=== PATIENT | female | born 1945 | race Caucasian/White ===

== ENCOUNTER 2017-03-27 06:53 | Day surgery (SDC) | payer MEDICARE, OTHER ==
[2017-03-27] MEDS ORDERED: Lactated Ringers 1,000 ML IV SCH (07:00)
[2017-03-27] MEDS ORDERED: Lidocaine 1%/Sod Bicarbonate in NS 8.4% 1 ML Syringe IV PRN (07:00)
[2017-03-27] MEDS ORDERED: Sodium Chloride 0.9% 10 ML Syringe FLUSH PRN (07:00)
[2017-03-27] MEDS ORDERED: Lidocaine 1% with EPINEPHrine 1:100,000 20 ML MDV ONE (07:20)
[2017-03-27] MEDS ORDERED: Albuterol 0.083% 2.5 MG/3 ML Neb Soln NEB ONE (07:24)
--- NOTE | 2017-03-27 07:33 | PCM.PREANE ---
Preanesthetic Assessment - Anesthesia/Transfusion/Family Hx Anesthesia History: Prior Anesthesia Without Reaction Family History of Anesthesia Reaction: No Transfusion History: No Prior Transfusion(s) - Review of Systems General: No Symptoms Pulmonary: Shortness of Breath (all the time-) Cardiovascular: Dyspnea on Exertion Gastrointestinal: Abdominal Pain (heartburn), Hematochezia, Other (dysphagia) Neurological: No Symptoms Other: Reports: Thyroid Problems, Depression, Anxiety - Physical Assessment NPO Status Date: 03/26/17 (sip of water with pill) NPO Status Time: 16:00 Pulse: 79 O2 Sat by Pulse Oximetry: 87 (86-88 without o2- 91 with deep breaths) Respiratory Rate: 16 Blood Pressure: 124/63 Temperature: 98.1 F Height: 4 ft 9 in Weight: 78.018 kg ASA Class: 3 Mental Status: Alert & Oriented x3 Airway Class: Mallampati = 1 Dentition: Reports: Normal Dentition Thyro-Mental Finger Breadths: 3 Mouth Opening Finger Breadths: 3 ROM/Head Extension: Full Lungs: Clear to Auscultation, Normal Respiratory Effort Cardiovascular: Regular Rate, Regular Rhythm - Allergies Allergies/Adverse Reactions: Allergies Allergy/AdvReac Type Severity Reaction Status Date / Time adhesive Allergy Rash Verified 12/06/15 11:08 bacitracin Allergy Rash Verified 12/06/15 11:08 neomycin Allergy Rash Verified 12/06/15 11:08 - Blood Blood Available: No - Acknowledgements Anesthesia Type Planned: MAC Pt an Appropriate Candidate for the Planned Anesthesia: Yes Alternatives and Risks of Anesthesia Discussed w Pt/Guardian: Yes Pt/Guardian Understands and Agrees with Anesthesia Plan: Yes PreAnesthesia Questionnaire Cardiovascular History: Reports: High Cholesterol, Hypertension Respiratory History: Reports: COPD, SOB, Other (See Below) (resp failure- o2 at home prn- 2 L) Gastrointestinal History: Reports: GERD Musculoskeletal History: Reports: Osteoporosis Psychiatric History: Reports: Anxiety, Depression Endocrine/Metabolic History: Reports: Obesity/BMI 30+ - Past Surgical History GI Surgical History: Reports: Colonoscopy Female Surgical History: Reports: Breast Biopsy - SUBSTANCE USE Smoking Status *Q: Former Smoker Tobacco Use Within Last Twelve Months: No Second Hand Smoke Exposure: No Days Per Week of Alcohol Use: 0 Recreational Drug Use History: No - HOME MEDS Home Medications: Home Meds Denosumab [Prolia] 1 dose SQ ASDIRECTED 06/21/14 [History] Levothyroxine [Synthroid] 50 mcg PO DAILY 06/21/14 [History] Sertraline HCl [Zoloft] 100 mg PO DAILY 06/21/14 [History] busPIRone [Buspar] 10 mg PO DAILY 06/21/14 [History] Ibuprofen 200 mg PO ASDIRECTED PRN 06/22/14 [History] Albuterol [Proventil HFA] 6.7 gm INH Q6H PRN 10/25/15 [History] Fluticasone Propionate [Flonase] 1 spray NASBOTH DAILY PRN 10/25/15 [History] Tiotropium Br/Olodaterol HCl [Stiolto Respimat Inhal [place]] 2 puff INH DAILY [History] Tiotropium Br/Olodaterol HCl [Stiolto Respimat Inhal [place]] 4 gm IH BID [History] - CURRENT (IN HOUSE) MEDS Current Meds: Current Medications Lactated Ringer's (Ringers, Lactated) 1,000 mls @ 125 mls/hr IV ASDIRECTED SELAM Stop: 03/27/17 23:00 Lidocaine/Sodium Bicarbonate (Buffered Lidocaine 1% In Ns 8.4%) 0.25 ml IV ONETIME PRN PRN Reason: Prior to IV Start Stop: 03/27/17 18:00 Sodium Chloride (Saline Flush) 10 ml FLUSH ASDIRECTED PRN PRN Reason: Keep Vein Open Stop: 03/27/17 18:00 Discontinued Medications Albuterol (Proventil Neb Soln) 2.5 mg NEB ONETIME ONE Stop: 03/27/17 07:25 Fentanyl (Sublimaze) Confirm Administered Dose 100 mcg .ROUTE .STK-MED ONE Stop: 03/27/17 07:38 Lidocaine HCl (Xylocaine-Mpf 1%) Confirm Administered Dose 4 mls @ as directed .ROUTE .STK-MED ONE Stop: 03/27/17 07:37 Midazolam HCl (Versed 1 Mg/Ml) Confirm Administered Dose 2 mg .ROUTE .STK-MED ONE Stop: 03/27/17 07:38 Propofol (Diprivan 20 Ml) Confirm Administered Dose 200 mg .ROUTE .STK-MED ONE Stop: 03/27/17 07:38 Propofol (Diprivan 20 Ml) Confirm Administered Dose 200 mg .ROUTE .STSentiOne-MED ONE Stop: 03/27/17 07:40
[2017-03-27] MEDS ORDERED: Lidocaine 1% 4 ML ONE (07:36)
[2017-03-27] MEDS ORDERED: Midazolam 1 MG/ML 2 ML SDV ONE (07:37)
[2017-03-27] MEDS ORDERED: fentaNYL 100 MCG/2 ML SDV ONE (07:37)
[2017-03-27] MEDS ORDERED: Propofol 200 MG/20 ML SDV ONE ×2 (07:37→07:39)
--- NOTE | 2017-03-27 08:34 | PCM48HPAN ---
Post Anesthesia Note - EVALUATION WITHIN 48HRS OF ANESTHETIC Vital Signs in Normal Range: Yes Patient Participated in Evaluation: Yes Respiratory Function Stable: Yes Airway Patent: Yes Cardiovascular Function Stable: Yes Hydration Status Stable: Yes Pain Control Satisfactory: Yes Nausea and Vomiting Control Satisfactory: Yes Mental Status Recovered: Yes
--- NOTE | 2017-03-27 08:42 | PCM.OPNOTE ---
- General Post-Op/Procedure Note Date of Surgery/Procedure: 03/27/17 Operative Procedure(s): 1. Sebaceous Cyst removal by elliptical excision left neck 2. EGD with cold forceps biopsy 3. Colonoscopy Findings: 1. Sebaceous Cyst 2. Esophagitis 3. Gastritis 4. Internal and External Hemorrhoids Pre Op Diagnosis: 1. Sebaceous Cyst Right Neck 2. Dysphagia 3. Epigastric Pain 4. Hematochezia Post-Op Diagnosis: 1. Sebaceous Cyst Right Neck 2. Esophagitis 3. Gastritis 4. Internal and External Hemorrhoids Anesthesia Technique: MAC Primary Surgeon: Nikita Hassan Anesthesia Provider: Pablo Niño EBShawn in mLs: 5 Complications: None Condition: Good Free Text/Narrative:: After patient gave verbal and written consent she was placed on blood pressure and pulse ox monitoring. She was given IV sedation which she tolerated well. Attention was turned to the 1x1 cm sebaceous cyst of the right neck and the area was prepped and draped in the usual sterile fashion using chlorhexidine. Using 1 ml of 1% lidocaine with epinephrine the area was anesthetized and the cyst was elliptically excised with a #15 blade resulting in a wound that was 1 x 1 cm. Using 5-0 prolene sutures the wound was approximated with 3 interrupted sutures. The wound was dressed with a petrolatum gauze and bandage. She tolerated well, no complications, the specimen was not submitted to pathology. The patient was then prepped for EGD. The gastroscope was passed down through the oropharynx into the 2nd portion of the duodenum without difficulty. The mucosal surfaces were imaged extensively. Gastritis and distal esophagitis were noted. Cold forceps biopsies were taken of the antrum, stomach body and GE junction. Bile was noted to reflux back into the stomach through the pylorus. The scope was then removed and there were no complications. The patient was then prepped for colonoscopy. The olympus colonoscope was inserted per rectum and advanced to the cecum without difficulty. The ileocecal valve and appendiceal orfice were imaged documenting cecal intubation. The scope was slowly withdrawn, the prep was excellent, the views were excellent, the scope was brought down into the rectum and was retroflexed. Internal and external hemorrhoids were noted on exam. The scope was removed, there were no complications.
[2017-03-27 09:27] VITALS: BP 112/63
== END 2017-03-27 09:35 | disposition home or self-care (01) ==
LOC: JD.SDS 06:53
PROVIDERS: ATTEND Family Medicine
DX: K29.40 Chronic atrophic gastritis without bleeding (principal); K31.89 Other diseases of stomach and duodenum; K20.9 Esophagitis, unspecified; L72.3 Sebaceous cyst; K64.4 Residual hemorrhoidal skin tags; K64.8 Other hemorrhoids; K21.9 Gastro-esophageal reflux disease without esophagitis; J96.11 Chronic respiratory failure with hypoxia; J44.9 Chronic obstructive pulmonary disease, unspecified; F32.9 Major depressive disorder, single episode, unspecified; F41.9 Anxiety disorder, unspecified; E78.00 Pure hypercholesterolemia, unspecified; E07.9 Disorder of thyroid, unspecified; E66.9 Obesity, unspecified; M81.0 Age-related osteoporosis without current pathological fracture; Z79.899 Other long term (current) drug therapy; Z88.1 Allergy status to other antibiotic agents; Z88.4 Allergy status to anesthetic agent; Z91.040 Latex allergy status; Z91.048 Other nonmedicinal substance allergy status; Z87.19 Personal history of other diseases of the digestive system; Z99.81 Dependence on supplemental oxygen; Z98.890 Other specified postprocedural states; Z87.891 Personal history of nicotine dependence; Z68.34 Body mass index [BMI] 34.0-34.9, adult
CPT/HCPCS: 11421; 43239; 45378; 94664; J2250; J3010; J7120; 00810; 88305; 88342; J2704

== ENCOUNTER 2019-05-02 13:33 | Emergency (ER) | payer MEDICARE, OTHER ==
[2019-05-02 13:59] VITALS: BP 166/95; PULSE 97
--- NOTE | 2019-05-02 15:20 | CT ---
CT lumbar spine Technique: Multiple axial sections were obtained from above the T11 vertebral body inferiorly through the L5-S1 disc. Reconstructed coronal and sagittal images were obtained. Comparison: Previous lumbar spine MRI of 05/12/13. Findings: T11-T12: Severe disc space narrowing is noted with vacuum phenomena. Posterior disc is preserved. No central canal stenosis or neural foraminal stenosis is seen. T12-L1: Posterior disc is maintained. No central canal stenosis or neural foraminal stenosis is seen. L1-L2: Posterior disc is maintained. No central canal stenosis or neural foraminal stenosis is seen. L2-L3: Very minimal circumferential disc bulge is seen. Posterior disc maintains a concave margin. No central canal stenosis is seen. Neural foramina are patent. L3-L4: Endplate concavity is seen within L3. This is an interval change from previous MRI. Slight circumferential disc bulge is seen. Posterior disc maintains a planar margin. No central canal stenosis is seen. Neural foramina are patent. Mild degenerative apophyseal change is seen. L4-L5: Slight circumferential disc bulge is seen. Posterior disc maintains a planar margin. Mild degenerative apophyseal change is noted. No central canal stenosis is seen. Neural foramina are patent where the nerve roots exit. L5-S1: Vacuum disc phenomena is seen within the disc. Posterior disc is preserved. No central canal stenosis is seen. Neural foramina are felt to be patent where the nerve roots exit. Mild degenerative apophyseal change is noted. No acute fracture is seen. No abnormal subluxation is seen. Impression: 1. Mild degenerative change as noted above. No focal disc herniation is seen. No neural foraminal stenosis or central canal stenosis is seen. 2. Endplate concavity is seen inferiorly within L3. This is an interval change from prior MRI study. 3. No acute fracture is otherwise seen. Diagnostic code #3
--- NOTE | 2019-05-02 16:02 | EDM.PDOC ---
ED HPI GENERAL MEDICAL PROBLEM - General Chief Complaint: Lower Extremity Injury/Pain Stated Complaint: FALL/LOWER LEGS NUMB Time Seen by Provider: 05/02/19 14:00 Source of Information: Reports: Patient, RN Notes Reviewed - History of Present Illness INITIAL COMMENTS - FREE TEXT/NARRATIVE: 73-year-old lady had onset of discomfort and "numbness" both lower legs 2 days ago. On a couch watching the buys in football game and then when she decided to move she states she had sudden pain, almost like a mani horse both lower legs but also felt that both legs were numb and weak. He states she actually had to "lie on the floor for about an hour before the pain got better and she was then able to stand and walk. She continued to have some discomfort that later afternoon and evening but symptoms did gradually continue to improve. Today she is fine but when family heard about that felt that she did need to be evaluated. She's had no chest or abdominal pain. No difficulty breathing. Fever chills or unusual bladder symptoms. She's never had anything of that nature before. There was no fall or injury that she would be aware of. No current bladder symptoms. - Related Data Allergies Allergy/AdvReac Type Severity Reaction Status Date / Time adhesive Allergy Rash Verified 05/02/19 13:59 allantoin Allergy Cannot Verified 05/02/19 13:59 Remember bacitracin Allergy Rash Verified 05/02/19 13:59 Gramicidins Allergy Cannot Verified 05/02/19 13:59 Remember neomycin Allergy Rash Verified 05/02/19 13:59 polymyxin B Allergy Cannot Verified 05/02/19 13:59 Remember pramoxine Allergy Cannot Verified 05/02/19 13:59 Remember Sulfa (Sulfonamide Allergy Cannot Verified 05/02/19 13:59 Antibiotics) Remember suture Allergy Other Verified 05/02/19 13:59 silicon Allergy Cannot Uncoded 03/27/17 07:37 Remember Home Meds: Home Meds Levothyroxine [Synthroid] 50 mcg PO DAILY 06/21/14 [History] Albuterol [Proventil HFA] 6.7 gm INH Q6H PRN 10/25/15 [History] Tiotropium Br/Olodaterol HCl [Stiolto Respimat Inhal [place]] 2 puff INH DAILY [History] Budesonide [Pulmicort] 2 puff INH BID 05/02/19 [History] Calcium Carbonate/Vitamin D3 [Calcium 1,000 + D3 [place]] 1 tab PO DAILY [History] Denosumab [Prolia] 60 mg INJECT ASDIRECTED 05/02/19 [History] Fluticasone Propionate [Flonase] 1 spray NASBOTH DAILY PRN 05/02/19 [History] Hydrocortisone Acetate [Anusol-Hc] 25 mg RECTAL BID 05/02/19 [History] Ibuprofen 400 mg PO BEDTIME 05/02/19 [History] Oxygen 05/02/19 [History] Sucralfate [Carafate] 1 gm PO BEDTIME 05/02/19 [History] Tiotropium Br/Olodaterol HCl [Stiolto Respimat Inhal [place]] 2 puff INH DAILY [History] Venlafaxine [Effexor XR] 150 mg PO DAILY 05/02/19 [History] Vitamin B Complex 1 tab PO DAILY 05/02/19 [History] atorvaSTATin [Lipitor] 20 mg PO DAILY 05/02/19 [History] Past Medical History HEENT History: Reports: Impaired Vision Cardiovascular History: Reports: High Cholesterol, Hypertension Respiratory History: Reports: COPD, SOB, Other (See Below) Gastrointestinal History: Reports: GERD Musculoskeletal History: Reports: Osteoporosis Psychiatric History: Reports: Anxiety, Depression Endocrine/Metabolic History: Reports: Obesity/BMI 30+ - Past Surgical History GI Surgical History: Reports: Colonoscopy Female Surgical History: Reports: Breast Biopsy Social & Family History - Tobacco Use Smoking Status *Q: Former Smoker Used Tobacco, but Quit: Yes Month/Year Tobacco Last Used: 04/2013 - Caffeine Use Caffeine Use: Reports: Coffee - Recreational Drug Use Recreational Drug Use: No Review of Systems - Review of Systems Review Of Systems: See Below Constitutional: Denies: Chills, Diaphoresis, Fever Eyes: Reports: No Symptoms Mouth/Throat: Denies: No Symptoms Respiratory: Denies: No Symptoms, Shortness of Breath, Pleuritic Chest Pain, Cough Cardiovascular: Denies: Chest Pain GI/Abdominal: Denies: Abdominal Pain, Nausea, Vomiting Musculoskeletal: Reports: Back Pain, Leg Pain (Low back primarily lower legs below the knees bilateral). Denies: Neck Pain, Shoulder Pain Neurological: Reports: Numbness (Bilateral lower extremities below the knees, gone), Difficulty Walking, Weakness (Bilateral lower extremities, gone). Denies : Trouble Speaking, Change in Speech ED EXAM, GENERAL - Physical Exam Exam: See Below General Appearance: Alert, No Apparent Distress Eye Exam: Bilateral Eye: PERRL Throat/Mouth: Normal Inspection Head: Atraumatic Neck: Normal Inspection, Supple, Non-Tender Respiratory/Chest: No Respiratory Distress, Lungs Clear, Normal Breath Sounds Cardiovascular: Regular Rate, Rhythm GI/Abdominal: Soft, Non-Tender. No: Guarding Back Exam: Other (No visible swelling, warmth or erythema). No: Paraspinal Tenderness, Vertebral Tenderness Extremities: Normal Inspection, Normal Range of Motion. No: Leg Pain, Increased Warmth, Redness Neurological: Alert, Oriented, No Motor/Sensory Deficits, Other (No weakness present at time of exam upper or lower extremities, finger to nose testing normal) Skin Exam: Warm, Dry, Normal Color EKG INTERPRETATION EKG Date: 05/02/19 Rhythm: NSR P-Wave: Present QRS: Other (q waves inf. leads) ST-T: Normal Course - Vital Signs Last Recorded V/S: Last Vital Signs Temp 99.3 F 05/02/19 13:53 Pulse 97 05/02/19 13:53 Resp 15 05/02/19 13:53 BP 166/95 H 05/02/19 13:53 Pulse Ox 91 L 05/02/19 13:53 - Orders/Labs/Meds Labs: Laboratory Tests 05/02/19 05/02/19 Range/Units 14:40 14:40 WBC 6.80 (3.98-10.04) K/mm3 RBC 4.40 (3.98-5.22) M/mm3 Hgb 12.8 (11.2-15.7) gm/dl Hct 39.5 (34.1-44.9) % MCV 89.8 (79.4-94.8) fl MCH 29.1 (25.6-32.2) pg MCHC 32.4 (32.2-35.5) g/dl RDW Std Deviation 44.2 (36.4-46.3) fL Plt Count 294 (182-369) K/mm3 MPV 9.1 L (9.4-12.3) fl Neut % (Auto) 59.1 (34.0-71.1) % Lymph % (Auto) 29.1 (19.3-51.7) % [place] % (Auto) 9.6 (4.7-12.5) % Eos % (Auto) 1.5 (0.7-5.8) Baso % (Auto) 0.4 (0.1-1.2) % Neut # (Auto) 4.02 (1.56-6.13) K/mm3 Lymph # (Auto) 1.98 (1.18-3.74) K/mm3 [place] # (Auto) 0.65 H (0.24-0.36) K/mm3 Eos # (Auto) 0.10 (0.04-0.36) K/mm3 Baso # (Auto) 0.03 (0.01-0.08) K/mm3 Sodium 141 (136-145) mEq/L Potassium 3.8 (3.5-5.1) mEq/L Chloride 107 (98-107) mEq/L Carbon Dioxide 26 (21-32) mEq/L Anion Gap 11.8 (5-15) BUN 12 (7-18) mg/dL Creatinine 1.0 (0.55-1.02) mg/dL Est Cr Clr Drug Dosing 38.37 mL/min Estimated GFR (MDRD) 55 (>60) mL/min BUN/Creatinine Ratio 12.0 L (14-18) Glucose 131 H (83-115) mg/dL Calcium 9.2 (8.5-10.1) mg/dL Total Bilirubin 0.3 (0.2-1.0) mg/dL AST 22 (15-37) U/L ALT 38 (14-59) U/L Alkaline Phosphatase 80 (46-116) U/L Total Protein 7.1 (6.4-8.2) g/dl Albumin 3.7 (3.4-5.0) g/dl Globulin 3.4 gm/dL Albumin/Globulin Ratio 1.1 (1-2) - Re-Assessments/Exams Free Text/Narrative Re-Assessment/Exam: 05/04/19 09:26 White blood count, chemistries normal. I did order an check a CT of her lumbar spine which did show some degenerative change but no acute pathology. She continued to be relatively asymptomatic while here in the ED, no current difficulty walking, no current focal weakness, discharage instructions as documented. Departure - Departure Time of Disposition: 17:04 Disposition: Home, Self-Care 01 Condition: Fair Clinical Impression: Leg pain, bilateral, Leg weakness, bilateral, Bilateral leg paresthesia - Discharge Information Referrals: Candace Liao MD [Primary Care Provider] - Forms: ED Department Discharge Additional Instructions: Continue current medications as prescribed, see Dr. Farris in about 1 week, call for appointment, follow-up clinic immediately or return to ED immediately if symptoms worsening in any way.
== END 2019-05-02 17:21 | disposition home or self-care (01) ==
LOC: JD.ED 13:33
DX: M79.662 Pain in left lower leg (principal); M79.661 Pain in right lower leg; R20.2 Paresthesia of skin; R53.1 Weakness; E78.00 Pure hypercholesterolemia, unspecified; I10 Essential (primary) hypertension; J44.9 Chronic obstructive pulmonary disease, unspecified; K21.9 Gastro-esophageal reflux disease without esophagitis; F41.9 Anxiety disorder, unspecified; F32.9 Major depressive disorder, single episode, unspecified; M81.0 Age-related osteoporosis without current pathological fracture; E66.9 Obesity, unspecified; Z68.32 Body mass index [BMI] 32.0-32.9, adult; Z79.899 Other long term (current) drug therapy; Z91.048 Other nonmedicinal substance allergy status; Z91.09 Other allergy status, other than to drugs and biological substances; Z88.1 Allergy status to other antibiotic agents; Z88.4 Allergy status to anesthetic agent; Z88.2 Allergy status to sulfonamides; Z79.51 Long term (current) use of inhaled steroids; Z87.891 Personal history of nicotine dependence
CPT/HCPCS: 36415; 72131; 72131-26; 80053; 85025; 93005; 93010; 99283; 99285-25

== ENCOUNTER 2020-02-17 18:18 | Emergency (ER) | payer MEDICARE, OTHER ==
[2020-02-17 18:33] VITALS: BP 136/66; PULSE 93
[2020-02-17] MEDS ORDERED: Sodium Chloride 0.9% 10 ML Syringe FLUSH PRN (18:49)
--- NOTE | 2020-02-17 18:53 | EDM.PDOC ---
ED HPI GENERAL MEDICAL PROBLEM - General Chief Complaint: Syncope Stated Complaint: [facility] Time Seen by Provider: 02/17/20 18:47 Source of Information: Reports: Patient, RN Notes Reviewed - History of Present Illness INITIAL COMMENTS - FREE TEXT/NARRATIVE: 74 yr old female with near syncopal event at clinic here in town a short time [employer]. Provider was "working on her 's toe". She started feeling weak, dizzy lightheaded. She has had some chills, increased nasal ghada. and sneezing yesterday and today. No known fever. She does have COPD. Uses oxygen at home at night and sometimes during the day. - Related Data Allergies Allergy/AdvReac Type Severity Reaction Status Date / Time adhesive Allergy Rash Verified 02/17/20 18:30 allantoin Allergy Cannot Verified 02/17/20 18:30 Remember bacitracin Allergy Rash Verified 02/17/20 18:30 Gramicidins Allergy Cannot Verified 02/17/20 18:30 Remember neomycin Allergy Rash Verified 02/17/20 18:30 polymyxin B Allergy Cannot Verified 02/17/20 18:30 Remember pramoxine Allergy Cannot Verified 02/17/20 18:30 Remember Sulfa (Sulfonamide Allergy Cannot Verified 02/17/20 18:30 Antibiotics) Remember suture Allergy Other Verified 02/17/20 18:30 silicon Allergy Cannot Uncoded 03/27/17 07:37 Remember Home Meds: Home Meds Levothyroxine [Synthroid] 50 mcg PO DAILY 06/21/14 [History] Albuterol [Proventil HFA] 6.7 gm INH Q6H PRN 10/25/15 [History] Tiotropium Br/Olodaterol HCl [Stiolto Respimat Inhal [place]] 2 puff INH DAILY 10/25/15 [History] Budesonide [Pulmicort] 2 puff INH BID 05/02/19 [History] Calcium Carbonate/Vitamin D3 [Calcium 1,000 + D3 [place]] 1 tab PO DAILY 05/02/19 [History] Denosumab [Prolia] 60 mg INJECT ASDIRECTED 05/02/19 [History] Fluticasone Propionate [Flonase] 1 spray NASBOTH DAILY PRN 05/02/19 [History] Hydrocortisone Acetate [Anusol-Hc] 25 mg RECTAL BID 05/02/19 [History] Ibuprofen 400 mg PO BEDTIME 05/02/19 [History] Oxygen 05/02/19 [History] Sucralfate [Carafate] 1 gm PO BEDTIME 05/02/19 [History] Tiotropium Br/Olodaterol HCl [Stiolto Respimat Inhal [place]] 2 puff INH DAILY 05/02/19 [History] Venlafaxine [Effexor XR] 150 mg PO DAILY 05/02/19 [History] Vitamin B Complex 1 tab PO DAILY 05/02/19 [History] atorvaSTATin [Lipitor] 20 mg PO DAILY 05/02/19 [History] Past Medical History HEENT History: Reports: Impaired Vision Cardiovascular History: Reports: High Cholesterol, Hypertension Respiratory History: Reports: COPD, SOB, Other (See Below) Gastrointestinal History: Reports: GERD Musculoskeletal History: Reports: Osteoporosis Psychiatric History: Reports: Anxiety, Depression Endocrine/Metabolic History: Reports: Obesity/BMI 30+ - Past Surgical History GI Surgical History: Reports: Colonoscopy Female Surgical History: Reports: Breast Biopsy Social & Family History - Caffeine Use Caffeine Use: Reports: Coffee ED ROS GENERAL - Review of Systems Review Of Systems: See Below Constitutional: Denies: Fever, Chills, Diaphoresis HEENT: Reports: No Symptoms Respiratory: Reports: Shortness of Breath (mild to moderate chronically), Cough (occasional) Cardiovascular: Denies: Chest Pain GI/Abdominal: Reports: Nausea (gone). Denies: Abdominal Pain, Vomiting Musculoskeletal: Denies: Shoulder Pain, Arm Pain Skin: Denies: Rash Neurological: Reports: Dizziness (now gone). Denies: Headache, Numbness, Tingling, Trouble Speaking ED EXAM, GENERAL - Physical Exam Exam: See Below General Appearance: Alert, No Apparent Distress Head: Atraumatic. No: Facial Swelling Neck: Supple Respiratory/Chest: No Respiratory Distress, Lungs Clear, Normal Breath Sounds Cardiovascular: Regular Rate, Rhythm GI/Abdominal: Soft, Non-Tender Extremities: Normal Inspection. No: Pedal Edema, Leg Pain, Increased Warmth, Redness Neurological: Alert, Oriented, No Motor/Sensory Deficits Skin Exam: Warm, Dry, Normal Color, No Rash EKG INTERPRETATION EKG Date: 02/17/20 Rhythm: NSR [place]: LAD-Left [place] Deviation P-Wave: Present QRS: Normal ST-T: Normal Course - Vital Signs Last Recorded V/S: Last Vital Signs Temp 97.6 F 02/17/20 18:27 Pulse 93 02/17/20 18:27 Resp 18 02/17/20 18:27 BP 136/66 02/17/20 18:27 Pulse Ox 91 L 02/17/20 21:00 - Orders/Labs/Meds Orders: Active Orders 24 hr Category Date Time Status Peripheral IV Insertion Adult [OM.PC] Stat Oth 02/17/20 18:50 Ordered Labs: Laboratory Tests 02/17/20 02/17/20 02/17/20 Range/Units 19:10 19:10 19:10 WBC 9.59 (3.98-10.04) K/mm3 RBC 4.60 (3.98-5.22) M/mm3 Hgb 13.5 (11.2-15.7) gm/dl Hct 41.5 (34.1-44.9) % MCV 90.2 (79.4-94.8) fl MCH 29.3 (25.6-32.2) pg MCHC 32.5 (32.2-35.5) g/dl RDW Std Deviation 45.9 (36.4-46.3) fL Plt Count 284 (182-369) K/mm3 MPV 9.0 L (9.4-12.3) fl Neut % (Auto) 75.9 H (34.0-71.1) % Lymph % (Auto) 16.1 L (19.3-51.7) % [place] % (Auto) 6.8 (4.7-12.5) % Eos % (Auto) 0.9 (0.7-5.8) Baso % (Auto) 0.2 (0.1-1.2) % Neut # (Auto) 7.28 H (1.56-6.13) K/mm3 Lymph # (Auto) 1.54 (1.18-3.74) K/mm3 [place] # (Auto) 0.65 H (0.24-0.36) K/mm3 Eos # (Auto) 0.09 (0.04-0.36) K/mm3 Baso # (Auto) 0.02 (0.01-0.08) K/mm3 D-Dimer, Quantitative 0.51 H (0.19-0.50) mg/L Sodium 140 (136-145) mEq/L Potassium 3.8 (3.5-5.1) mEq/L Chloride 104 (98-107) mEq/L Carbon Dioxide 28 (21-32) mEq/L Anion Gap 11.8 (5-15) BUN 17 (7-18) mg/dL Creatinine 1.1 H (0.55-1.02) mg/dL Est Cr Clr Drug Dosing 34.37 mL/min Estimated GFR (MDRD) 49 (>60) mL/min BUN/Creatinine Ratio 15.5 (14-18) Glucose 131 H (83-115) mg/dL Calcium 9.2 (8.5-10.1) mg/dL Ferritin (8-252) ng/ml Total Bilirubin 0.4 (0.2-1.0) mg/dL AST 19 (15-37) U/L ALT 35 (14-59) U/L Alkaline Phosphatase 79 (46-116) U/L Lactate Dehydrogenase 185 (81-234) U/L Troponin I < 0.017 (0.00-0.056) ng/mL C-Reactive Protein 0.6 (<1.0) mg/dL Total Protein 7.5 (6.4-8.2) g/dl Albumin 3.9 (3.4-5.0) g/dl Globulin 3.6 gm/dL Albumin/Globulin Ratio 1.1 (1-2) SARS Virus RNA (PCR) (NEGATIVE) 02/17/20 02/17/20 Range/Units 19:10 20:15 WBC (3.98-10.04) K/mm3 RBC (3.98-5.22) M/mm3 Hgb (11.2-15.7) gm/dl Hct (34.1-44.9) % MCV (79.4-94.8) fl MCH (25.6-32.2) pg MCHC (32.2-35.5) g/dl RDW Std Deviation (36.4-46.3) fL Plt Count (182-369) K/mm3 MPV (9.4-12.3) fl Neut % (Auto) (34.0-71.1) % Lymph % (Auto) (19.3-51.7) % [place] % (Auto) (4.7-12.5) % Eos % (Auto) (0.7-5.8) Baso % (Auto) (0.1-1.2) % Neut # (Auto) (1.56-6.13) K/mm3 Lymph # (Auto) (1.18-3.74) K/mm3 [place] # (Auto) (0.24-0.36) K/mm3 Eos # (Auto) (0.04-0.36) K/mm3 Baso # (Auto) (0.01-0.08) K/mm3 D-Dimer, Quantitative (0.19-0.50) mg/L Sodium (136-145) mEq/L Potassium (3.5-5.1) mEq/L Chloride (98-107) mEq/L Carbon Dioxide (21-32) mEq/L Anion Gap (5-15) BUN (7-18) mg/dL Creatinine (0.55-1.02) mg/dL Est Cr Clr Drug Dosing mL/min Estimated GFR (MDRD) (>60) mL/min BUN/Creatinine Ratio (14-18) Glucose (83-115) mg/dL Calcium (8.5-10.1) mg/dL Ferritin 143 (8-252) ng/ml Total Bilirubin (0.2-1.0) mg/dL AST (15-37) U/L ALT (14-59) U/L Alkaline Phosphatase (46-116) U/L Lactate Dehydrogenase (81-234) U/L Troponin I (0.00-0.056) ng/mL C-Reactive Protein (<1.0) mg/dL Total Protein (6.4-8.2) g/dl Albumin (3.4-5.0) g/dl Globulin gm/dL Albumin/Globulin Ratio (1-2) SARS Virus RNA (PCR) Negative (NEGATIVE) Meds: Medications Discontinued Medications Generic Name Dose Route Start Last Admin Trade Name Freq PRN Reason Stop Dose Admin Sodium Chloride 10 ml 02/17/20 18:49 02/17/20 18:53 Saline Flush FLUSH 10 ml ASDIRECTED PRN Administration Keep Vein Open - Re-Assessments/Exams Free Text/Narrative Re-Assessment/Exam: 02/17/20 20:39 WBC, CRP, trop, ferritin, LDH all nl, D Dimer well within nl for at 0.51. CXR no infiltrate. 02 sats at time of my eval 91 to 92 % room air. I did order a 60 minutes covid screen anticipating that she would be covid pos and need to be admitted. That is still pending. Now that all of the above markers are good, oxygenation better and in line with normal for her I am going to let her go home. Even is she does come back covid pos. at this time she is OK to go home with good return precautions discussed with patient. 02/17/20 21:29. covid screen neg. discussed with family. Departure - Departure Time of Disposition: 20:35 Disposition: Home, Self-Care 01 Condition: Fair Clinical Impression: Vasovagal near syncope Instructions: Near-Syncope, [id number] Referrals: PCP,None [Ordering Only Provider] - Forms: ED Department Discharge Additional Instructions: rest, we will call you the results of the covid screen when that becomes available to us later this evening. Rest, continue current meds. Return to ED as needed if symptoms worsening in any way. Sepsis Event Note (ED) - Evaluation Sepsis Screening Result: No Definite Risk - My Orders Last 24 Hours: My Active Orders 02/17/20 18:50 Peripheral IV Insertion Adult [OM.PC] Stat - Assessment/Plan Last 24 Hours: My Active Orders 02/17/20 18:50 Peripheral IV Insertion Adult [OM.PC] Stat
--- NOTE | 2020-02-17 19:42 | CR ---
Chest: Frontal view of the chest was obtained. Comparison: No prior chest imaging is available. Heart size is normal. Tortuous thoracic aorta is noted. Lungs show no acute parenchymal change. Impression: 1. Nothing acute is appreciated on frontal chest x-ray. Diagnostic code #1 This report was dictated in MDT
== END 2020-02-17 21:00 | disposition home or self-care (01) ==
LOC: JD.ED 18:18
DX: R55 Syncope and collapse (principal); I10 Essential (primary) hypertension; E78.00 Pure hypercholesterolemia, unspecified; J44.9 Chronic obstructive pulmonary disease, unspecified; E66.9 Obesity, unspecified; F41.9 Anxiety disorder, unspecified; F32.9 Major depressive disorder, single episode, unspecified; Z20.828 Contact with and (suspected) exposure to other viral communicable diseases; Z88.8 Allergy status to other drugs, medicaments and biological substances; Z88.1 Allergy status to other antibiotic agents; Z88.2 Allergy status to sulfonamides; Z91.048 Other nonmedicinal substance allergy status; Z91.09 Other allergy status, other than to drugs and biological substances; Z68.33 Body mass index [BMI] 33.0-33.9, adult
CPT/HCPCS: 36415; 71045; 80053; 82728; 83615; 84484; 85025; 85379; 86140; 93005; 99285; U0002; 93010; 99283

== ENCOUNTER 2021-07-19 09:55 | Emergency (ER) | payer MEDICARE, OTHER ==
[2021-07-19] MEDS ORDERED: Sodium Chloride 0.9% 10 ML Syringe FLUSH PRN (10:20)
[2021-07-19] MEDS ORDERED: diphenhydrAMINE 50 MG/ML SDV IVPUSH PRN (12:36)
[2021-07-19] MEDS ORDERED: EPINEPHrine 1 MG/ML SDV IM PRN (12:36)
[2021-07-19] MEDS ORDERED: Famotidine 20 MG/2 ML SDV IVPUSH PRN (12:36)
[2021-07-19] MEDS ORDERED: methylPREDNISolone Sodium Succinate 125 MG/2 ML SDV IVPUSH PRN (12:36)
[2021-07-19] MEDS ORDERED: Sodium Chloride 0.9% 10 ML Syringe FLUSH SCH (12:45)
[2021-07-19 13:01] VITALS: BP 116/93; PULSE 77
== END 2021-07-19 15:23 | disposition home or self-care (01) ==
LOC: JD.ED 09:55
DX: U07.1 COVID-19 (principal); E78.00 Pure hypercholesterolemia, unspecified; I10 Essential (primary) hypertension; J44.9 Chronic obstructive pulmonary disease, unspecified; F17.210 Nicotine dependence, cigarettes, uncomplicated; E66.9 Obesity, unspecified; Z68.32 Body mass index [BMI] 32.0-32.9, adult; Z91.048 Other nonmedicinal substance allergy status; Z88.8 Allergy status to other drugs, medicaments and biological substances; Z88.1 Allergy status to other antibiotic agents; Z88.2 Allergy status to sulfonamides; Z79.899 Other long term (current) drug therapy
CPT/HCPCS: 36415; 71045; 80053; 83605; 83880; 84484; 85007; 85027; 85379; 86140; 93005; 99285; M0247; Q0247; 93010; 99284

== ENCOUNTER 2024-08-13 09:21 | Inpatient (IN) | payer MEDICARE ==
[2024-08-13 10:42] LABS: INR 0.96; PROTHROMBIN TIME 10.2 SECONDS (9.7-12.0)
[2024-08-13 10:50] LABS: HEMATOCRIT 36.4 % (37.0-47.0); HEMOGLOBIN 11.7 gm/dl (12.0-16.0); MEAN CORPUSCULAR HEMOGLOBIN 29.6 pg (28.0-32.0); MEAN CORPUSCULAR HGB CONC 32.1 g/dl (32.0-36.0); MEAN CORPUSCULAR VOLUME 92.2 fl (83.0-99.0); MEAN PLATELET VOLUME 9.9 fl (9.4-12.3); PLATELET COUNT,PLT 173 K/mm3 (150-400); RED BLOOD CELL COUNT 3.95 M/mm3 (4.10-5.30); WHITE BLOOD CELL COUNT,WBC 6.91 K/mm3 (3.9-11.3)
[2024-08-13 11:15] LABS: BAND PERCENT MAN 0 % (0-10); BASOPHILS PERCENT MAN 0 (0.1-1.2); EOSINOPHILS PERCENT MAN 0 % (0.7-5.8); LYMPHOCYTES % ATYPICAL MANUAL 0 %; LYMPHOCYTES PERCENT MAN 13 % (20-40); MONOCYTES PERCENT MAN 8 % (2-10)
[2024-08-13 11:16] LABS: PLATELET COUNT ESTIMATE ADEQUATE; TOXIC GRANULATION FEW
[2024-08-13] MEDS: methylPREDNISolone Sodium Succinate 125 MG/2 ML SDV IVPUSH ONE (11:22)
[2024-08-13] MEDS: Acetaminophen 325 MG Tab PO ONE (11:24)
[2024-08-13] MEDS: Sodium Chloride 0.9% 10 ML Syringe FLUSH PRN (11:25)
[2024-08-13 11:26] LABS: LACTIC ACID 1.2 mmol/L (0.4-2.0)
[2024-08-13 11:28] LABS: A/G RATIO 0.8 (1-2); ALBUMIN 3.1 g/dl (3.4-5.0); ANION GAP 8.7 (5-15); BILIRUBIN TOTAL 0.5 mg/dL (0.2-1.0); BUN/CREATININE RATIO 18.2 (14-18); C-REACTIVE PROTEIN 3.62 mg/dL (<0.30); CALCIUM 8.8 mg/dL (8.5-10.1); CREATININE 1.1 mg/dL (0.55-1.02); EST CRCL DRUG DOSING (CG) 38.54 mL/min; POTASSIUM,K 3.7 mEq/L (3.5-5.1); PROTEIN TOTAL,TP 6.8 g/dl (6.4-8.2)
[2024-08-13] MEDS: Albuterol/Ipratropium 3.0-0.5 MG/3 ML Neb Soln NEB ONE (11:45)
[2024-08-13] MEDS ORDERED: Ondansetron 4 MG/2 ML SDV IV PRN (18:26)
[2024-08-13] MEDS ORDERED: Sennosides/Docusate Sodium 50-8.6 MG Tab PO PRN (18:26)
[2024-08-13] MEDS ORDERED: Acetaminophen 325 MG Tab PO PRN (18:26)
[2024-08-13] MEDS ORDERED: oxyCODONE 5 MG Tab PO PRN (18:26)
[2024-08-13] MEDS ORDERED: Fluticasone NASAL Spray 16 GM Bottle NASBOTH PRN (18:29)
[2024-08-13] MEDS ORDERED: Albuterol 6.7 GM Inhaler INH PRN (18:35)
[2024-08-13] MEDS: Enoxaparin 40 MG/0.4 ML Syringe SUBCUT SCH (19:51)
[2024-08-13] MEDS: Dexamethasone 4 MG/ML SDV IVPUSH SCH (19:51)
[2024-08-13] MEDS: Melatonin 3 MG Tab PO PRN (20:58)
[2024-08-13] MEDS ORDERED: Budesonide 0.25 MG/2 ML Neb Susp INH SCH (21:00)
[2024-08-13] MEDS: Budesonide 0.5 MG/2 ML Neb Susp INH SCH (21:24)
[2024-08-14 05:49] LABS: HEMATOCRIT 35.3 % (37.0-47.0); HEMOGLOBIN 11.4 gm/dl (12.0-16.0); IMMATURE GRAN ABSOLUTE AUTO 0.03 K/mm3 (0.00-0.05); IMMATURE GRAN PERCENT AUTO 0.4 % (0.0-0.4); LYMPHOCYTES ABSOLUTE AUTO 0.9 K/mm3 (1.0-4.8); LYMPHOCYTES PERCENT AUTO 13.3 % (24.0-44.0); MEAN CORPUSCULAR HEMOGLOBIN 29.5 pg (28.0-32.0); MEAN CORPUSCULAR HGB CONC 32.3 g/dl (32.0-36.0); MEAN CORPUSCULAR VOLUME 91.5 fl (83.0-99.0); MEAN PLATELET VOLUME 9.6 fl (9.4-12.3); MONOCYTES ABSOLUTE AUTO 0.6 K/mm3 (0.0-0.8); MONOCYTES PERCENT AUTO 8.6 % (0.0-8.0); NEUTROPHILS ABSOLUTE AUTO 5.3 K/mm3 (1.8-7.7); NEUTROPHILS PERCENT AUTO 77.7 % (41.0-71.0); PLATELET COUNT,PLT 159 K/mm3 (150-400); RED BLOOD CELL COUNT 3.86 M/mm3 (4.10-5.30); WHITE BLOOD CELL COUNT,WBC 6.78 K/mm3 (3.9-11.3)
[2024-08-14] MEDS: Albuterol/Ipratropium 3.0-0.5 MG/3 ML Neb Soln NEB PRN (06:19)
[2024-08-14 06:29] LABS: A/G RATIO 0.8 (1-2); ALBUMIN 2.7 g/dl (3.4-5.0); ANION GAP 10.1 (5-15); BILIRUBIN TOTAL 0.3 mg/dL (0.2-1.0); C-REACTIVE PROTEIN 5.29 mg/dL (<0.30); CALCIUM 8.9 mg/dL (8.5-10.1); EST CRCL DRUG DOSING (CG) 33.84 mL/min; MAGNESIUM 1.9 mg/dL (1.8-2.4); PHOSPHORUS 4.4 mg/dL (2.6-4.7); POTASSIUM,K 4.1 mEq/L (3.5-5.1); PROTEIN TOTAL,TP 6.2 g/dl (6.4-8.2); TSH 0.595 uIU/mL (0.358-3.74)
[2024-08-14] MEDS: Levothyroxine 50 MCG Tab PO SCH (06:41)
[2024-08-14] MEDS ORDERED: Cyclobenzaprine 10 MG Tab PO PRN (07:40)
[2024-08-14] MEDS: Calcium Carbonate/Vitamin D3 600 MG-200 Units Tab PO SCH (08:18)
[2024-08-14] MEDS: atorvaSTATin 20 MG Tab PO SCH (08:18)
[2024-08-14] MEDS: Citalopram 20 MG Tab PO SCH (08:18)
[2024-08-14] MEDS: Venlafaxine 75 MG Cap.ER PO SCH (08:18)
[2024-08-14] MEDS: busPIRone 15 MG Tab PO SCH (08:19)
[2024-08-14] MEDS: Tiotropium BR/Olodaterol HCL 4 GM Inhalation Spray 2.5mcg/1 dose; 10 doses INH SCH (08:47)
[2024-08-14] MEDS: Pantoprazole 40 MG Tab.CR PO SCH (10:55)
[2024-08-14] MEDS: cefTRIAXone 1 GM Vial IVPUSH SCH (17:48)
[2024-08-14] MEDS: Azithromycin 500 MG in Sodium Chloride 0.9% 250 ML IV SCH (17:54)
[2024-08-15 06:24] LABS: ANION GAP 10.6 (5-15); BUN/CREATININE RATIO 23.3 (14-18); C-REACTIVE PROTEIN 3.23 mg/dL (<0.30); CALCIUM 8.4 mg/dL (8.5-10.1); CREATININE 0.9 mg/dL (0.55-1.02); EST CRCL DRUG DOSING (CG) 37.6 mL/min; MAGNESIUM 1.6 mg/dL (1.8-2.4); POTASSIUM,K 3.6 mEq/L (3.5-5.1)
[2024-08-15] MEDS: Magnesium Sulf/Wat 2 GM/50 mL 2 GM in Premix Bag 1 BAG IV ONE (08:20)
[2024-08-15] MEDS ORDERED: Acetaminophen 325 MG Tab PO PRN (10:07)
[2024-08-15] MEDS: cefTRIAXone 1 GM Vial IVPUSH SCH (10:25)
[2024-08-15] MEDS: Benzocaine/Cetylpyridinium/Menthol Lozenge MUCMEM PRN (14:24)
[2024-08-16 10:18] VITALS: BP 124/90; PULSE 75
== END 2024-08-16 10:22 | disposition home or self-care (01) | DRG 177 ==
LOC: JD.ED 09:21 → JD.MS 12:50
PROVIDERS: ADMIT Student in an Organized Health Care Education/Training Program; ATTEND Family Medicine
PROC: 3E03329 Introduction of Other Anti-infective into Peripheral Vein, Percutaneous Approach (ICD-10-PCS; principal; 2024-08-13)
PROC: 3E0333Z Introduction of Anti-inflammatory into Peripheral Vein, Percutaneous Approach (ICD-10-PCS; 2024-08-13)
DX: U07.1 COVID-19 (principal); J12.82 Pneumonia due to coronavirus disease 2019; I10 Essential (primary) hypertension; J18.9 Pneumonia, unspecified organism; J96.21 Acute and chronic respiratory failure with hypoxia; Z68.29 Body mass index [BMI] 29.0-29.9, adult; Z86.16 Personal history of COVID-19; Z88.8 Allergy status to other drugs, medicaments and biological substances; Z91.048 Other nonmedicinal substance allergy status; J44.0 Chronic obstructive pulmonary disease with (acute) lower respiratory infection; J44.1 Chronic obstructive pulmonary disease with (acute) exacerbation; Z79.890 Hormone replacement therapy; J98.11 Atelectasis; H54.7 Unspecified visual loss; K21.9 Gastro-esophageal reflux disease without esophagitis; M81.0 Age-related osteoporosis without current pathological fracture; E66.9 Obesity, unspecified; F15.90 Other stimulant use, unspecified, uncomplicated; D64.9 Anemia, unspecified; F41.9 Anxiety disorder, unspecified; E03.9 Hypothyroidism, unspecified; E78.00 Pure hypercholesterolemia, unspecified; Z88.1 Allergy status to other antibiotic agents; Z88.2 Allergy status to sulfonamides; Z91.09 Other allergy status, other than to drugs and biological substances; Z79.51 Long term (current) use of inhaled steroids; Z79.1 Long term (current) use of non-steroidal anti-inflammatories (NSAID); Z79.899 Other long term (current) drug therapy; Z79.02 Long term (current) use of antithrombotics/antiplatelets; Z68.32 Body mass index [BMI] 32.0-32.9, adult; Z98.890 Other specified postprocedural states; Z87.891 Personal history of nicotine dependence; Z99.81 Dependence on supplemental oxygen
CPT/HCPCS: 36415; 71045; 80053; 83605; 83880; 84484; 85007; 85027; 85610; 86140; 87040 ×2; 87428; 93005; 94640; 96374; 99285; A9270; J2919; 80048; 83735; 84100; 84443; 85025; 93010; 94667; 94668; 94760; 94761; 99284; J0456; J0696; J1100; J1650; J3475; J3490; J7620-GY

== ENCOUNTER 2024-09-09 07:23 | Emergency (ER) | payer MEDICARE ==
[2024-09-09] MEDS ORDERED: Sodium Chloride 0.9% 10 ML Syringe FLUSH PRN (08:23)
[2024-09-09] MEDS: Sodium Chloride 0.9% 1,000 ML IV ONE (08:45)
[2024-09-09] MEDS: Ondansetron 4 MG/2 ML SDV IVPUSH ONE (08:46)
[2024-09-09 09:51] LABS: BASOPHILS PERCENT AUTO 0.2 % (0.0-1.0); EOSINOPHILS ABSOLUTE AUTO 0.1 K/mm3 (0.0-0.4); EOSINOPHILS PERCENT AUTO 0.5 % (0.0-6.0); HEMATOCRIT 45.2 % (37.0-47.0); HEMOGLOBIN 14.2 gm/dl (12.0-16.0); IMMATURE GRAN ABSOLUTE AUTO 0.03 K/mm3 (0.00-0.05); IMMATURE GRAN PERCENT AUTO 0.3 % (0.0-0.4); LYMPHOCYTES ABSOLUTE AUTO 0.8 K/mm3 (1.0-4.8); LYMPHOCYTES PERCENT AUTO 6.5 % (24.0-44.0); MEAN CORPUSCULAR HEMOGLOBIN 29.8 pg (28.0-32.0); MEAN CORPUSCULAR HGB CONC 31.4 g/dl (32.0-36.0); MEAN PLATELET VOLUME 9.8 fl (9.4-12.3); MONOCYTES ABSOLUTE AUTO 0.7 K/mm3 (0.0-0.8); MONOCYTES PERCENT AUTO 5.8 % (0.0-8.0); NEUTROPHILS ABSOLUTE AUTO 10.1 K/mm3 (1.8-7.7); NEUTROPHILS PERCENT AUTO 86.7 % (41.0-71.0); PLATELET COUNT,PLT 233 K/mm3 (150-400); RED BLOOD CELL COUNT 4.76 M/mm3 (4.10-5.30); WHITE BLOOD CELL COUNT,WBC 11.59 K/mm3 (3.9-11.3)
[2024-09-09 10:06] LABS: ALBUMIN 3.6 g/dl (3.4-5.0); ANION GAP 12.2 (5-15); BILIRUBIN TOTAL 0.8 mg/dL (0.2-1.0); BUN/CREATININE RATIO 21.5 (14-18); CALCIUM 9.5 mg/dL (8.5-10.1); CREATININE 1.3 mg/dL (0.55-1.02); EST CRCL DRUG DOSING (CG) 26.03 mL/min; POTASSIUM,K 4.2 mEq/L (3.5-5.1); PROTEIN TOTAL,TP 7.4 g/dl (6.4-8.2)
[2024-09-09 10:23] LABS: LACTIC ACID 1.4 mmol/L (0.4-2.0)
[2024-09-09] MEDS: diphenhydrAMINE 50 MG/ML SDV IVPUSH ONE (10:43)
[2024-09-09] MEDS: methylPREDNISolone Sodium Succinate 125 MG/2 ML SDV IVPUSH ONE (10:43)
[2024-09-09] MEDS: Loperamide 2 MG Cap PO ONE (11:37)
[2024-09-09 11:39] LABS: APPEARANCE,URINE CLEAR (Clear); BILIRUBIN,URINE NEGATIVE (Negative); COLOR,URINE YELLOW (Yellow); GLUCOSE,URINE NEGATIVE (Negative); KETONES,URINE NEGATIVE (Negative); LEUKOCYTE ESTERASE,URINE NEGATIVE (Negative); NITRITE,URINE NEGATIVE (Negative); OCCULT BLOOD,URINE NEGATIVE (Negative); PROTEIN,URINE TRACE (Negative); UROBILINOGEN,URINE 0.2 (0.2-1.0)
[2024-09-09 11:53] LABS: AMORPHOUS SEDIMENT,URINE MODERATE /hpf (NOT SEEN); BACTERIA,URINE FEW /hpf (FEW); MUCUS,URINE MODERATE /hpf (FEW); RBC,URINE 0-5 /hpf (0-5); WBC,URINE 0-5 /hpf (0-5)
[2024-09-09] MEDS: Sodium Chloride 0.9% 500 ML IV ONE (13:35)
[2024-09-09 15:44] VITALS: BP 127/70; PULSE 74
== END 2024-09-09 15:37 | disposition home or self-care (01) ==
LOC: JD.ED 07:23
DX: R19.7 Diarrhea, unspecified (principal); R11.2 Nausea with vomiting, unspecified; E78.00 Pure hypercholesterolemia, unspecified; J44.9 Chronic obstructive pulmonary disease, unspecified; Z91.048 Other nonmedicinal substance allergy status; Z88.8 Allergy status to other drugs, medicaments and biological substances; Z91.041 Radiographic dye allergy status; Z88.2 Allergy status to sulfonamides; Z79.890 Hormone replacement therapy; Z79.51 Long term (current) use of inhaled steroids; Z79.899 Other long term (current) drug therapy; Z86.16 Personal history of COVID-19
CPT/HCPCS: 36415; 74176; 80053; 81001; 83605; 84484; 85025; 87040; 87428; 87493; 93005; 96361; 96374; 99284; A9270; J2405; J7030; 93010

== ENCOUNTER 2024-09-10 16:51 | Emergency (ER) | payer MEDICARE ==
[2024-09-10 17:55] LABS: BASOPHILS PERCENT AUTO 0.1 % (0.0-1.0); EOSINOPHILS PERCENT AUTO 0.4 % (0.0-6.0); HEMATOCRIT 37.9 % (37.0-47.0); IMMATURE GRAN ABSOLUTE AUTO 0.05 K/mm3 (0.00-0.05); IMMATURE GRAN PERCENT AUTO 0.6 % (0.0-0.4); LYMPHOCYTES ABSOLUTE AUTO 1.3 K/mm3 (1.0-4.8); MEAN CORPUSCULAR HEMOGLOBIN 29.8 pg (28.0-32.0); MEAN CORPUSCULAR HGB CONC 31.9 g/dl (32.0-36.0); MEAN CORPUSCULAR VOLUME 93.3 fl (83.0-99.0); MEAN PLATELET VOLUME 9.4 fl (9.4-12.3); MONOCYTES ABSOLUTE AUTO 0.9 K/mm3 (0.0-0.8); MONOCYTES PERCENT AUTO 10.7 % (0.0-8.0); NEUTROPHILS ABSOLUTE AUTO 6.1 K/mm3 (1.8-7.7); NEUTROPHILS PERCENT AUTO 73.2 % (41.0-71.0); PLATELET COUNT,PLT 180 K/mm3 (150-400); RED BLOOD CELL COUNT 4.06 M/mm3 (4.10-5.30); WHITE BLOOD CELL COUNT,WBC 8.39 K/mm3 (3.9-11.3)
[2024-09-10 17:57] LABS: HEMOGLOBIN 12.1 gm/dl (12.0-16.0)
[2024-09-10 18:16] LABS: LACTIC ACID 0.7 mmol/L (0.4-2.0)
[2024-09-10 18:27] LABS: A/G RATIO 0.9 (1-2); ANION GAP 11.9 (5-15); BILIRUBIN TOTAL 0.5 mg/dL (0.2-1.0); BUN/CREATININE RATIO 16.7 (14-18); C-REACTIVE PROTEIN 4.04 mg/dL (<0.30); CALCIUM 8.5 mg/dL (8.5-10.1); CREATININE 1.2 mg/dL (0.55-1.02); EST CRCL DRUG DOSING (CG) 28.2 mL/min; MAGNESIUM 1.8 mg/dL (1.8-2.4); POTASSIUM,K 3.9 mEq/L (3.5-5.1); PROTEIN TOTAL,TP 6.4 g/dl (6.4-8.2); TSH 3.261 uIU/mL (0.358-3.74)
[2024-09-10] MEDS: Sodium Chloride 0.9% 1,000 ML IV ONE (19:22)
[2024-09-10] MEDS ORDERED: Sodium Chloride 0.9% 10 ML Syringe FLUSH PRN (19:27)
[2024-09-10] MEDS: Ondansetron 4 MG/2 ML SDV IVPUSH ONE (19:30)
[2024-09-10] MEDS: diphenhydrAMINE 50 MG/ML SDV IVPUSH ONE (19:31)
[2024-09-10] MEDS: methylPREDNISolone Sodium Succinate 125 MG/2 ML SDV IVPUSH ONE (19:32)
[2024-09-10] MEDS: Iopamidol 612 MG/ML 100 ML Bottle IVPUSH ONE (20:21)
[2024-09-10] MEDS: Sodium Chloride 0.9% 10 ML Syringe FLUSH PRN (20:21)
[2024-09-11 05:04] VITALS: BP 130/73; PULSE 76
== END 2024-09-11 06:58 | disposition home or self-care (01) ==
LOC: JD.ED 16:51
DX: K52.9 Noninfective gastroenteritis and colitis, unspecified (principal); E78.00 Pure hypercholesterolemia, unspecified; J44.9 Chronic obstructive pulmonary disease, unspecified; K21.9 Gastro-esophageal reflux disease without esophagitis; E66.9 Obesity, unspecified; Z87.891 Personal history of nicotine dependence; Z86.16 Personal history of COVID-19; Z79.890 Hormone replacement therapy; Z79.899 Other long term (current) drug therapy; Z79.51 Long term (current) use of inhaled steroids; Z88.2 Allergy status to sulfonamides; Z91.048 Other nonmedicinal substance allergy status; Z88.8 Allergy status to other drugs, medicaments and biological substances; Z88.1 Allergy status to other antibiotic agents; Z68.33 Body mass index [BMI] 33.0-33.9, adult
CPT/HCPCS: 36415; 74177; 80053; 83605; 83690; 83735; 83880; 84443; 84484; 85025; 86140; 93005; 96361; 96374; 96375; 99285; J1200; J2405; J2919; J7030; Q9967; 93010; 99283